=== PATIENT | female | born 1980 | race American Indian/Alaskan Native ===

== ENCOUNTER 2017-05-08 00:36 | Emergency (ER) | payer SELFPAY ==
[2017-05-08] MEDS ORDERED: CATAPRES PO ONE (00:46)
--- NOTE | 2017-05-08 01:23 | XRay Report ---
FINAL REPORT EXAM: XR ANKLE 3 RT HISTORY: swelling COMPARISON: None available. FINDINGS: Three views of right ankle obtained. Ankle mortise is preserved. No acute fracture dislocation. Mild soft tissue swelling. IMPRESSION: No acute bony abnormality. Mild soft tissue swelling.
[2017-05-08] MEDS ORDERED: FLEXERIL PO ONE (01:40)
[2017-05-08] MEDS ORDERED: MOTRIN PO ONE (01:40)
--- NOTE | 2017-05-08 01:45 | Emergency Department Report ---
HPI - General Chief Complaint: Extremity Injury, Lower Time Seen by Provider: 05/08/17 01:18 - HPI HPI: Patient is a 36-year-old female who presents to ED complaining of right ankle injury that happened on Saturday. Patient states she was wrestling with no sign she states that her ankle. She states ankle swollen and has become more painful since then. She describes a throbbing/aching pain on the lateral aspect of her right ankle. She denies bleeding. She had made this pain with applying weight on that foot. She denies fevers/chills/nausea/vomiting/abdominal pain service chest pain/ shortness of breath/ ED Past Medical Hx - Past Medical History Previous Medical History?: Yes Hx Hypertension: Yes Hx CVA: Yes (last year) - Surgical History Past Surgical History?: Yes Additional Surgical History: c section 6 left ovary surgery - Social History Smoking Status: Current Every Day Smoker Substance Use Type: Prescribed - Medications Home Medications: Home Medications Medication Instructions Recorded Confirmed Last Taken Type Cyclobenzaprine [Flexeril 10 MG 10 mg PO QHS #24 tablet 05/08/17 Unknown Rx TAB] Ibuprofen [Motrin 800 MG tab] 800 mg PO Q8H #30 tablet 05/08/17 Unknown Rx Lisinopril [Zestril TAB] 20 mg PO QDAY #40 tablet 05/08/17 Unknown Rx ED Review of Systems ROS: Stated complaint: RT LEG INJURY/SWOLLEN Other details as noted in HPI Constitutional: denies: chills, fever Eyes: denies: eye pain, eye discharge, vision change ENT: denies: ear pain, throat pain Respiratory: denies: cough, shortness of breath, wheezing Cardiovascular: denies: chest pain, palpitations Endocrine: no symptoms reported Gastrointestinal: denies: abdominal pain, nausea, diarrhea Genitourinary: denies: urgency, dysuria, discharge Musculoskeletal: arthralgia. denies: back pain, joint swelling, myalgia Skin: denies: rash, lesions, pruritus Neurological: denies: headache, weakness, numbness, paresthesias, confusion Psychiatric: denies: anxiety, depression Hematological/Lymphatic: denies: easy bleeding, easy bruising Physical Exam - Physical Exam Vital Signs: Vital Signs 05/08/17 00:41 Temperature 98.6 F Pulse Rate 81 Respiratory 20 Rate Blood Pressure 185/127 Blood Pressure 185/127 [Right] O2 Sat by Pulse 100 Oximetry Physical Exam: GENERAL: Alert and oriented x3, no apparent distress, Normal Gait, atraumatic. HEAD: Head is normocephalic and a-traumatic. NECK: Supple. Non edematous, No carotid bruits. No lymphadenopathy or thyromegaly. No C-spine tenderness LUNGS: Symetrical with respiration, No wheezing, no rales or crackles, CTAB. HEART: S1, S2 present, regular rate and rhythm without murmur, no rubs, no gallops. Non tender to palpation EXTREMITIES/MUSCULOSKELETAL: No cyanosis, clubbing, rash, lesions or edema. Full ROM bilaterally. UE/LE Pulses 2+ bilaterally. LE and UE 5+ strength bilaterally, ankle joints are intact bilaterally. Mild swelling to the lateral aspect of the right ankle. Mild tenderness to palpation. No ecchymosis and no active bleeding. NEUROLOGIC: The patient is cooperative with no focal neurologic deficits. Cranial nerves II through XII are grossly intact. Normal speech. SKIN: Warm and dry, No lesions, No ulceration or induration present. ED Course Vital Signs 05/08/17 00:41 Temperature 98.6 F Pulse Rate 81 Respiratory 20 Rate Blood Pressure 185/127 Blood Pressure 185/127 [Right] O2 Sat by Pulse 100 Oximetry ED Medical Decision Making - Medical Decision Making 36-year-old female presented to the ED with right ankle sprain ED course: Patient received Motrin and Flexeril. Discussed rice therapy. Plan: Anil wrap and postop shoe discharge Discussed follow-up with primary care physician assigned Signs are normal patient has no acute distress She is stable. Blood pressure is reduced prior to discharge. Patient is a symptomatic in ED. She states she just moved in her primary care to refill her blood pressure medications next discussed the patient to start taking blood pressure medication as to discussed follow-up with primary care for management of blood pressure. Patient states she understands and will follow up with primary care as referred Critical care attestation.: If time is entered above; I have spent that time in minutes in the direct care of this critically ill patient, excluding procedure time. ED Disposition Clinical Impression: Right ankle sprain Qualifiers: Encounter type: initial encounter Involved ligament of ankle: unspecified ligament Qualified Code(s): S93.401A - Sprain of unspecified ligament of right ankle, initial encounter Disposition: TO HOME OR SELFCARE Is pt being admited?: No Does the pt Need Aspirin: No Condition: Stable Instructions: Ankle Sprain (ED), Ankle Exercises (GEN) Additional Instructions: Take blood pressure medication as prescribed Follow-up with your primary care physician Symptoms worsen or new symptoms arise or return to ED Prescriptions: Cyclobenzaprine [Flexeril 10 MG TAB] 10 mg PO QHS #24 tablet Ibuprofen [Motrin 800 MG tab] 800 mg PO Q8H #30 tablet Lisinopril [Zestril TAB] 20 mg PO QDAY #40 tablet Referrals: PRIMARY CARE, [Primary Care Provider] - 3-5 Days [facility] [Outside] - 3-5 Days [facility] [Outside] - 3-5 Days [facility] [Outside] - 3-5 Days Forms: Work/School Release Form(ED) Time of Disposition: 02:08
[2017-05-08 02:06] VITALS: BP 164/114
== END 2017-05-08 02:24 | disposition home or self-care (01) ==
LOC: ED 00:36
DX: S93.401A Sprain of unspecified ligament of right ankle, initial encounter (principal); I10 Essential (primary) hypertension; F17.200 Nicotine dependence, unspecified, uncomplicated; X58.XXXA Exposure to other specified factors, initial encounter; Y93.9 Activity, unspecified; Y92.9 Unspecified place or not applicable; Y99.9 Unspecified external cause status
CPT/HCPCS: 99283

== ENCOUNTER 2017-06-14 01:36 | Emergency (ER) | payer SELFPAY ==
[2017-06-14 02:38] VITALS: BP 156/116
[2017-06-14 03:09] LABS: Basophils % (Auto) 1.3 % (0.0-1.8); Hematocrit 32.9 % (30.3-42.9); Hemoglobin 10.7 gm/dl (10.1-14.3); Mean Corpuscular HGB Conc 32 % (30-34); Mean Corpuscular Volume 73 fl (79-97); Platelet Count 317 K/mm3 (140-440); Red Blood Count 4.49 M/mm3 (3.65-5.03); Red Cell Distribution Width 18.5 % (13.2-15.2); White Blood Count 9.3 K/mm3 (4.5-11.0)
[2017-06-14 03:13] LABS: Bilirubin,Urine NEG (Negative); Blood,Urine NEG (Negative); Ketones,Urine NEG (Negative); Leukocyte Esterase,Urine NEG (Negative); Mucus,Urine 1+ /HPF; Nitrite,Urine NEG (Negative); Protein,Urine <15 mg/dL mg/dL (Negative); Urobilinogen,Urine < 2.0 mg/dL (<2.0)
[2017-06-14 03:17] LABS: INR 0.88 (0.87-1.13)
[2017-06-14 03:18] LABS: Partial Thromboplastin Time 29.3 Sec. (24.2-36.6)
[2017-06-14 03:21] LABS: Mean Corpuscular Hemoglobin 24 pg (28-32)
[2017-06-14 03:31] LABS: Alanine Aminotransferase 8 units/L (7-56); Albumin 3.9 g/dL (3.9-5); Alkaline Phosphatase 107 units/L (35-129); Anion Gap 20 mmol/L; BUN/Creatinine Ratio 13.33; Bilirubin,Total < 0.20 mg/dL (0.1-1.2); Blood Urea Nitrogen 8 mg/dL (7-17); Calcium 8.7 mg/dL (8.4-10.2); Carbon Dioxide 21 mmol/L (22-30); Chloride 102.5 mmol/L (98-107); Glucose 91 mg/dL (65-100); Lipase 40 units/L (13-60); Potassium 3.8 mmol/L (3.6-5.0); Sodium 140 mmol/L (137-145)
--- NOTE | 2017-06-14 03:46 | XRay Report ---
FINAL REPORT EXAM: XR CHEST ROUTINE 2V HISTORY: Chest pain, preg test ordered COMPARISON: None available. FINDINGS:: Frontal and lateral views of the chest obtained. Cardiac silhouette is within normal limits. No focal consolidation or effusion. No pneumothorax. Visualized bony thorax is grossly intact. IMPRESSION:: No acute findings.
== END 2017-06-14 04:30 | disposition left against medical advice (07) ==
LOC: ED 01:36
DX: R07.9 Chest pain, unspecified (principal); R10.9 Unspecified abdominal pain; Z53.21 Procedure and treatment not carried out due to patient leaving prior to being seen by health care provider
CPT/HCPCS: 36415; 71020; 80053; 81001; 83690; 84484; 84703; 85025; 85610; 85730; 93005; 93010